=== PATIENT | female | born 1995 | race Caucasian/White ===

== ENCOUNTER 2017-01-01 23:59 | Emergency (ER) | payer OTHER ==
[~2017-01-01] VITALS: Ht 152.4 cm; Wt 86.2 kg
[~2017-01-01 23:59] MED LIST: IBUPROFEN PO; NO MEDICATIONS
[2017-01-02] MEDS ORDERED: EFFEXOR37.5 MG PO (00:12)
[2017-01-02] MEDS ORDERED: DIAMOX SEQUELS500 MG PO (00:12)
== END 2017-01-02 00:42 | disposition home or self-care (01) ==
LOC: SED 23:59
DX: J20.9 Acute bronchitis, unspecified (principal); H66.91 Otitis media, unspecified, right ear; J45.909 Unspecified asthma, uncomplicated; F17.200 Nicotine dependence, unspecified, uncomplicated; Z88.0 Allergy status to penicillin; Z88.1 Allergy status to other antibiotic agents; Z79.899 Other long term (current) drug therapy
CPT/HCPCS: 99282